=== PATIENT | female | born 2000 | race Caucasian/White ===

== ENCOUNTER 2024-09-11 16:04 | Day surgery (SDC) | payer SELFPAY ==
[2024-09-11 16:28] LABS: APPEARANCE,URINE CLEAR; GLUCOSE,URINE NEGATIVE (NEGATIVE); OCCULT BLOOD,URINE NEGATIVE (NEGATIVE)
[2024-09-11 16:42] LABS: BASOPHILS ABSOLUTE AUTO 0.07 K/uL (0.00-0.20); BASOPHILS PERCENT AUTO 0.7 % (0.0-1.0); EOSINOPHILS ABSOLUTE AUTO 0.16 K/uL (0.00-0.45); EOSINOPHILS PERCENT AUTO 1.6 % (0.0-6.0); IMMATURE GRAN ABSOLUTE AUTO 0.04 K/uL (0.00-0.05); IMMATURE GRAN PERCENT AUTO 0.4 % (0.0-0.4); LYMPHOCYTES ABSOLUTE AUTO 3.10 K/uL (1.00-4.80); LYMPHOCYTES PERCENT AUTO 30.1 % (24.0-44.0); MEAN PLATELET VOLUME 9.7 fL (9.4-12.3); MONOCYTES ABSOLUTE AUTO 0.82 K/uL (0.00-0.80); MONOCYTES PERCENT AUTO 8.0 % (0.0-8.0); NEUTROPHILS ABSOLUTE AUTO 6.12 K/uL (1.80-7.70); NEUTROPHILS PERCENT AUTO 59.2 % (41.0-71.0); NRBC ABSOLUTE 0.00 K/uL (0.00-0.02); NRBC PERCENT 0.0 /100WBC (0.0-0.2); PLATELET COUNT,PLT 264 K/uL (150-400); RED BLOOD CELL COUNT 4.28 M/uL (4.10-5.30); WHITE BLOOD CELL COUNT,WBC 10.31 K/uL (3.9-11.3)
[2024-09-11 17:07] LABS: A/G RATIO 1.3 (0.9-1.6); ALANINE AMINOTRANSFERASE,ALT 19.0 IU/L (14-63); ASPARTATE AMNIOTRANSFERASE,AST 16.0 IU/L (15-37); BILIRUBIN TOTAL 0.6 mg/dL (0.2-1.0); BLOOD UREA NITROGEN,BUN 21.0 mg/dL (7.0-18.0); CARBON DIOXIDE,CO2 27.3 mmol/L (21.0-32.0); CHLORIDE,CL 104.0 mmol/L (98-107); CREATININE 0.9 mg/dL (0.6-1.0); EST CRCL DRUG DOSING (CG) 81.11 mL/min; GLUCOSE RANDOM 100.0 mg/dL (74-106); POTASSIUM,K 4.0 mmol/L (3.5-5.1); PROTEIN TOTAL,TP 6.8 g/dL (6.4-8.2); SODIUM,NA 140.0 mmol/L (136-145)
[2024-09-11] MEDS: Iopamidol 755 Mg/ML 100 ML Bottle IVPUSH ONE (17:09)
[2024-09-11 17:12] LABS: ESTIMATED GFR 93.0 mL/min (>60)
[2024-09-11] MEDS ORDERED: Midazolam 1 MG/ML 2 ML SDV ONE (20:17)
[2024-09-11] MEDS ORDERED: Propofol 200 MG/20 ML SDV ONE (20:17)
[2024-09-11] MEDS ORDERED: fentaNYL 100 MCG/2 ML SDV ONE (20:17)
[2024-09-11] MEDS ORDERED: Ondansetron 4 MG/2 ML SDV ONE (20:17)
[2024-09-11] MEDS ORDERED: Dexamethasone 4 MG/ML 5 ML MDV ONE (20:17)
[2024-09-11] MEDS ORDERED: Ropivacaine 0.5% 5 MG/ML 30 ML SDV ONE (20:22)
[2024-09-11] MEDS ORDERED: Ketorolac 30 MG/ML SDV ONE (20:54)
[2024-09-11] MEDS ORDERED: Naloxone 0.4 MG/ML SDV IVPUSH PRN (21:47)
[2024-09-11] MEDS ORDERED: Ondansetron 4 MG/2 ML SDV IVPUSH PRN (21:47)
[2024-09-11] MEDS ORDERED: Acetaminophen/HYDROcodone 325-5 MG Tab PO PRN (21:47)
[2024-09-11] MEDS: Lactated Ringers 1,000 ML IV SCH (22:59)
== END 2024-09-12 09:10 | disposition home or self-care (01) ==
LOC: MW.ED 16:04 → MW.SDS 21:10 → MW.MS 22:29 → MW.SDS 09-12 09:10
PROVIDERS: ATTEND Surgery
DX: K35.30 Acute appendicitis with localized peritonitis, without perforation or gangrene (principal)
CPT/HCPCS: 36415; 44970; 64488; 74177; 80053; 81003; 81025; 83690; 85025; 96361; 96365; 99285; J0665; J1100; J1335; J1885; J2003; J2250; J2405; J2704; J2795; J3010; J7030; J7120; Q9967; 00840; 99284; J3490